=== PATIENT | male | born 1955 | race African-American/Black ===

== ENCOUNTER 2016-05-21 16:25 | Emergency (ER) | payer OTHER ==
[~2016-05-21] VITALS: Ht 172.7 cm; Wt 70.0 kg
[~2016-05-21 16:25] MED LIST: ARTH650T6 PO; CYCL5TAB PO; IBUP800T23 PO; LEVO.025 PO
[2016-05-21 16:26] VITALS: BP 138/87; PULSE 64; RESP 20; TEMP 97.8; O2SAT 97
--- NOTE | 2016-05-21 16:35 | PD ---
Physical Exam Date Seen by Provider: May 21, 2016 Time Seen by Provider: 16:31 Narrative Patient seen in Triage with 2 month history of worsening Left lateral elbow pain. Patient denies specific injury. PATIENT WORKS CONSTRUCTION. Patient states pain is sharp and worse with gripping and twisting the left forearm. Pain radiates up his arm into left should and chest at night. No fever, Chills or fever. EKG ordered. Vital signs reviewed and are stable. Patient waiting for bed placement. Data Data Last Documented VS Vital Signs Date Time Temp Pulse Resp B/P Pulse Ox O2 Delivery O2 Flow Rate FiO2 05/21/16 16:26 97.8 64 20 138/87 97 Room Air Orders Electrocardiogram (05/21/16 ) [facility] Medical Record Reviewed: Yes Supervised Visit with VANDANA: Yes Condition: Stable Garcia Eason May 21, 2016 16:35
[2016-05-21 17:23] VITALS: BP 126/86; PULSE 56; RESP 17; O2SAT 100
[2016-05-21] MEDS ORDERED: ACETAMINOPHEN/HYDROcodone 325 MG/5 MG TAB PO ONE (17:45)
[2016-05-21] MEDS ORDERED: ASPIRIN 81 MG CHEW TAB PO ONE (17:45)
[2016-05-21] MEDS ORDERED: SODIUM CHLORIDE 0.9% FLUSH 10 ML FLUSH IVF PRN (17:45)
[2016-05-21 17:57] LABS: AUTOMATED NEUTROPHIL # 1.6 TH/MM3 (1.8-7.7); BASOPHIL # 0.1 TH/MM3 (0-0.2); BASOPHIL % 1.3 % (0.0-2.0); EOSINOPHIL # 0.2 TH/MM3 (0-0.4); EOSINOPHIL % 5.9 % (0.0-4.0); HEMATOCRIT 42.1 % (39.0-51.0); HEMO FLAGS DIFF FINAL; LYMPH % 44.5 % (9.0-44.0); LYMPHOCYTE # 1.9 TH/MM3 (1.0-4.8); MEAN CELL VOLUME 99.4 FL (80.0-100.0); MEAN CORPUSCULAR HEMOGLOBIN 32.8 PG (27.0-34.0); MONO % 8.8 % (0.0-8.0); NEUT % 39.5 % (16.0-70.0); PLATELET COUNT 240 TH/MM3 (150-450); RED BLOOD COUNT 4.24 MIL/MM3 (4.50-5.90); WHITE BLOOD COUNT 4.2 TH/MM3 (4.0-11.0)
--- NOTE | 2016-05-21 17:57 | RADRPT ---
EXAM DATE/TIME: 05/21/2016 17:55 [facility] COMPARISON: No previous studies available for comparison. INDICATIONS : Chest pains. Pt denies chest pains or SOB at this time. MEDICAL HISTORY : None. SURGICAL HISTORY : None. ENCOUNTER: Initial ACUITY: 1 day PAIN SCORE: 0/10 LOCATION: Bilateral chest FINDINGS: Single AP view of the chest. 1.7 cm nodular density in the right midlung. The lungs are otherwise neelam ar. Cardiomediastinal silhouette within normal limits. No evidence of pleural effusion or pneumothora x. CONCLUSION: 1.7 cm nodular density in the right midlung. Recommend chest CT without contrast to evalu ate for pulmonary nodule. Richard Garcia MD on May 21, 2016 at 17:55 Board Certified Radiologist. This report was verified electronically.
[2016-05-21 18:04] LABS: APTT (PATIENT) 27.5 SEC (24.3-30.1); INTERNATIONAL NORMALIZED RATIO 0.9 RATIO; PROTHROMBIN TIME - PATIENT 10.1 SEC (9.8-11.6)
--- NOTE | 2016-05-21 18:06 | RADRPT ---
EXAM DATE/TIME: 05/21/2016 17:57 [facility] COMPARISON: No previous studies available for comparison. INDICATIONS : Left elbow pain x 4days. Pt denies trauma to his elbow. He states he does repetitive motion at work w ith it. MEDICAL HISTORY : None. SURGICAL HISTORY : None. ENCOUNTER: Initial ACUITY: 1 day PAIN SCORE: 7/10 LOCATION: Left elbow FINDINGS: Multiple view examination of the left elbow demonstrates no soft tissue swelling, joint effusion, or fracture. The osseous structures are in normal alignment. Bony mineralization is normal. CONCLUSION: No acute disease. Jerry Helms MD on May 21, 2016 at 18:04 Board Certified Radiologist. This report was verified electronically.
[2016-05-21 18:12] LABS: ALT (GPT) 33 U/L (12-78); ANION GAP 6 MEQ/L (5-15); AST (GOT) 27 U/L (15-37); BICARBONATE 26.1 MEQ/L (21.0-32.0); BLOOD UREA NITROGEN 8 MG/DL (7-18); CHLORIDE 107 MEQ/L (98-107); GLOMERULAR FILTRATION RATE 88 ML/MIN (>89); MAGNESIUM 2.2 MG/DL (1.5-2.5); SODIUM (NA) 139 MEQ/L (136-145)
[2016-05-21 18:14] LABS: ALKALINE PHOSPHATASE 84 U/L (45-117); CREATINE KINASE 172 U/L (39-308); TOTAL BILIRUBIN ADULT 0.3 MG/DL (0.2-1.0)
[2016-05-21 18:15] LABS: POTASSIUM 4.6 MEQ/L (3.5-5.1)
--- NOTE | 2016-05-21 18:16 | PD ---
HPI Chief Complaint: Pain: Acute or Chronic Time Seen by Provider: 17:35 Travel History International Travel<30 days: No Contact w/Intl Traveler<30days: No Traveled to known affect area: No History of Present Illness HPI Patient's 60-year-old male presents emergency department for complaints of left elbow pain. Patient was seen as part of provider in triage screening and then transferred to [place]. Patient apparently volunteered to the PA in triage that he was having some left elbow pain intermittently for the past 2 weeks. He states his been gradually getting worse, denies any blunt trauma or falls. Patient is coming by his brother and his brother who told the provider in triage that the patient had also been complaining of some left-sided chest pain radiating down into his arm for the past few days as well. Patient isn't admitted cocaine user. Is also a smoker. Denies any history of heart problems. Denies any high blood pressure high cholesterol diabetes. When confronted for this history patient states that yes he has been having some intermittent discomfort. Has been having some mild shortness of breath as well. PFSH Past Medical History Diminished Hearing: No Influenza Vaccination: No Past Surgical History Surgical History: No Previous Surgery Social History Alcohol Use: Yes (5 BEERS DAILY) Tobacco Use: Yes (1/2 PPD) Substance Use: No (weed, cocaine 2 to 3 days ago) Allergies-Medications (Allergen,Severity, Reaction): Coded Allergies: No Known Allergies (Verified , 05/21/16) Reported Meds & Prescriptions Reported Meds & Active Scripts Active [place] (Hydrocodone-Acetaminophen) 5-325 mg Tab 1 Tab PO Q6H PRN Review of Systems Except as stated in HPI: all other systems reviewed are Neg Physical Exam Narrative GENERAL: Well-developed well-nourished no apparent distress. SKIN: Focused skin assessment warm/dry. HEAD: Atraumatic. Normocephalic. EYES: Pupils equal and round. No scleral icterus. No injection or drainage. ENT: No nasal bleeding or discharge. Mucous membranes pink and moist. NECK: Trachea midline. No JVD. CARDIOVASCULAR: Regular rate and rhythm. No murmur appreciated. 2+ bilaterally pulses in all 4 extremities. RESPIRATORY: No accessory muscle use. Clear to auscultation. Breath sounds equal bilaterally. GASTROINTESTINAL: Abdomen soft, non-tender, nondistended. Hepatic and splenic margins not palpable. MUSCULOSKELETAL: No obvious deformities. No clubbing. No cyanosis. No edema. There is some minimal tenderness of the left upper condyle of the left elbow. Compartments are soft, pulse motor and sensory intact distally, no tenderness at the left shoulder or left wrist. Right upper extremity is atraumatic and pulse motor and sensory intact. Compartments are soft in both upper extremities. NEUROLOGICAL: Awake and alert. No obvious cranial nerve deficits. Motor grossly within normal limits. Normal speech. PSYCHIATRIC: Appropriate mood and affect; insight and judgment normal. Data Data Last Documented VS Vital Signs Date Time Temp Pulse Resp B/P Pulse Ox O2 Delivery O2 Flow Rate FiO2 05/21/16 17:23 56 17 126/86 100 Room Air 05/21/16 16:26 97.8 Orders Electrocardiogram (05/21/16 ) Ckmb (Isoenzyme) Profile (05/21/16 17:35) Complete Blood Count With Diff (05/21/16 17:35) Comprehensive Metabolic Panel (05/21/16 17:35) Magnesium (Mg) (05/21/16 17:35) Prothrombin Time / Inr (Pt) (05/21/16 17:35) Act Partial Throm Time (Ptt) (05/21/16 17:35) Troponin I (05/21/16 17:35) Chest, Single Ap (05/21/16 17:35) Ecg Monitoring (05/21/16 17:35) Bilateral Bp Monitoring (05/21/16 17:35) Iv Access Insert/Monitor (05/21/16 17:35) Oximetry (05/21/16 17:35) Oxygen Administration (05/21/16 17:35) Aspirin Chew (Aspirin Chew) (05/21/16 17:45) Sodium Chloride 0.9% Flush (Ns Flush) (05/21/16 17:45) Elbow, Complete (4 Vws) (05/21/16 ) Acetamin-Hydrocod 325-5 Mg ([place] 5-325 (05/21/16 17:45) CKMB (05/21/16 17:40) CKMB% (05/21/16 17:40) Labs Laboratory Tests Test 05/21/16 17:40 White Blood Count 4.2 TH/MM3 Red Blood Count 4.24 MIL/MM3 Hemoglobin 13.9 GM/DL Hematocrit 42.1 % Mean Corpuscular Volume 99.4 FL Mean Corpuscular Hemoglobin 32.8 PG Mean Corpuscular Hemoglobin 33.0 % Concent Red Cell Distribution Width 13.0 % Platelet Count 240 TH/MM3 Mean Platelet Volume 7.6 FL Neutrophils (%) (Auto) 39.5 % Lymphocytes (%) (Auto) 44.5 % Monocytes (%) (Auto) 8.8 % Eosinophils (%) (Auto) 5.9 % Basophils (%) (Auto) 1.3 % Neutrophils # (Auto) 1.6 TH/MM3 Lymphocytes # (Auto) 1.9 TH/MM3 Monocytes # (Auto) 0.4 TH/MM3 Eosinophils # (Auto) 0.2 TH/MM3 Basophils # (Auto) 0.1 TH/MM3 CBC Comment DIFF FINAL Differential Comment Prothrombin Time 10.1 SEC Prothromb Time International 0.9 RATIO Ratio Activated Partial 27.5 SEC Thromboplast Time Sodium Level 139 MEQ/L Potassium Level 4.6 MEQ/L Chloride Level 107 MEQ/L Carbon Dioxide Level 26.1 MEQ/L Anion Gap 6 MEQ/L Blood Urea Nitrogen 8 MG/DL Creatinine 1.05 MG/DL Estimat Glomerular Filtration 88 ML/MIN Rate Random Glucose 77 MG/DL Calcium Level 8.8 MG/DL Magnesium Level 2.2 MG/DL Total Bilirubin 0.3 MG/DL Aspartate Amino Transf 27 U/L (AST/SGOT) Alanine Aminotransferase 33 U/L (ALT/SGPT) Alkaline Phosphatase 84 U/L Total Creatine Kinase 172 U/L Creatine Kinase MB 0.8 NG/ML Troponin I LESS THAN 0.02 NG/ML Total Protein 7.5 GM/DL Albumin 3.3 GM/DL [facility] Medical Decision Making Medical Screen Exam Complete: Yes Emergency Medical Condition: Yes Interpretation(s) EKG shows normal sinus rhythm with normal axis normal R-wave progression. There is nonspecific T-wave abnormality most notable in V3 and V4. This nondiagnostic acute STEMI but is concerning for some ischemia. No previous for comparison. Differential Diagnosis ACS, AMI, elbow pain, fracture unlikely, bursitis, arthritis. Narrative Course Patient was roomed in emergency department, he was given aspirin as well as pain medicine. He appears well in no apparent distress. Initial workup patient noted for an abnormal EKG, chest x-ray and elbow x-ray negative. Troponin negative. Discussed with the patient that given his intermittent chest pain as well as cocaine use and smoking I would recommend that he have an observation period in the chest pain center. After discussion of the risks benefits complications and alternatives including sudden cardiac , major adverse cardiac event, and disability patient would like to go home and follow-up at home. A formal AMA paper was signed. Discussed with them symptomatic management and return to ED criteria which is what to do at any time. He was referred to multiple other providers time of discharge. He was encouraged to return to the emergency department if and when he changes his mind for observation status. Last 24 hours Impressions Chest X-Ray 05/21/16 1735 Signed Impressions: Service Date/Time: April 17:55 - CONCLUSION: 1.7 cm nodular density in the right midlung. Recommend chest CT without contrast to evaluate for pulmonary nodule. Richard Garcia MD Elbow X-Ray 05/21/16 0000 Signed Impressions: Service Date/Time: April 17:57 - CONCLUSION: No acute disease. Jerry Helms MD I also discussed with him the incidental finding of a 1.7 cm opacity on the left side of his chest and recommend he follow with a primary care physician or the [facility] for this. Diagnosis Primary Impression: Chest pain Qualified Code: R07.9 - Chest pain, unspecified type Additional Impression: Elbow pain Qualified Code: M25.529 - Elbow pain, unspecified laterality Referrals: Quinn Murdock MD, Karla A. MD Med/Other Pt SpecificInfo: Prescription(s) given Scripts Hydrocodone-Acetaminophen ([place])5-325 mg Tab1 Tab PO Q6H PRN (PAIN) #10 TAB Ref 0 Prov:Jerry Qiu MD 05/21/16 Disposition: 07 AGAINST MEDICAL ADVICE Condition: Stable Jerry iQu MD May 21, 2016 18:15
[2016-05-21 18:36] LABS: CKMB 0.8 NG/ML (0.5-3.6)
[2016-05-21] MEDS ORDERED: NORC5TAB PO (19:26)
--- NOTE | 2016-05-22 16:23 | EKG ---
Date Performed: 05/21/2016 Time Performed: 16:52:02 PTAGE: 60 years EKG: SINUS BRADYCARDIA BORDERLINE ECG NO PREVIOUS TRACING DOCTOR: Paula Buckley Interpretating Date/Time 05/22/2016 16:21:24
== END 2016-05-21 19:40 | disposition left against medical advice (07) ==
LOC: NEPA 16:25
DX: R07.9 Chest pain, unspecified (principal); R00.1 Bradycardia, unspecified; M25.522 Pain in left elbow; F14.10 Cocaine abuse, uncomplicated; F12.10 Cannabis abuse, uncomplicated; F10.10 Alcohol abuse, uncomplicated; F17.210 Nicotine dependence, cigarettes, uncomplicated
CPT/HCPCS: 71010; 73080; 80053; 82550; 82552; 83735; 84484; 85025; 85610; 85730; 93005